=== PATIENT | female | born 1990 | race Caucasian/White ===

== ENCOUNTER 2019-02-25 16:40 | Emergency (ER) | payer OTHER | END 2019-02-25 19:43 | disposition home or self-care (01) | LOC: FTE 16:40 | DX: S20.229A Contusion of unspecified back wall of thorax, initial encounter (principal); W01.198A Fall on same level from slipping, tripping and stumbling with subsequent striking against other object, initial encounter; Y92.9 Unspecified place or not applicable | CPT/HCPCS: 72100; 72220; 81025; 99283-25 ==

== ENCOUNTER 2019-03-10 19:25 | Emergency (ER) | payer OTHER | END 2019-03-10 22:20 | disposition home or self-care (01) | LOC: FTE 19:25 | DX: R10.84 Generalized abdominal pain (principal) | CPT/HCPCS: 81025; 99283 ==